=== PATIENT | female | born 1940 | race Caucasian/White ===

== ENCOUNTER → 2024-04-22 13:49 | Outpatient (REF) | payer MEDICARE, OTHER, SELFPAY | LOC: HWRCS 13:49 | PROVIDERS: ATTENDING PHYSICIAN Internal Medicine Cardiovascular Disease; FAMILY PHYSICIAN Physician Assistant Medical | DX: R60.0 Localized edema (principal) | CPT/HCPCS: 93306 ==

== ENCOUNTER → 2024-07-13 14:04 | Outpatient (REF) | payer MEDICARE, OTHER, SELFPAY | LOC: HWWDC 14:04 | PROVIDERS: ATTENDING PHYSICIAN Physician Assistant Medical | DX: Z12.31 Encounter for screening mammogram for malignant neoplasm of breast (principal) | CPT/HCPCS: 77063; 77067 ==

== ENCOUNTER 2024-07-27 15:29 | Outpatient (RCR) | payer MEDICARE, OTHER, SELFPAY ==
[2024-07-27 14:44] LABS: % Basophils 0.6 % (0-2); % Eosinophils 2.9 % (0-6); % Immature Granulocytes 0.7 % (0-0.5); % Lymphocytes 24.3 % (20.5-51.1); % Monocytes 8.4 % (1.7-9.3); % Neutrophils 63.1 % (42.2-75.2); Absolute Eosinophils 0.2 10^3/uL (0-0.7); Absolute Immature Granulocytes 0.1 10^3/uL (0-0.05); Absolute Lymphocytes 1.7 10^3/uL (1.2-3.4); Absolute Monocytes 0.6 10^3/uL (0.1-0.6); Absolute Neutrophils 4.3 10^3/uL (1.4-6.5); Hematocrit 34.3 % (37.0-47.0); Hemoglobin 11.2 g/dL (12.0-16.0); Mean Corp Hgb Conc. 32.7 g/dL (33.0-37.0); Mean Corpuscular Hgb 30.1 pg (27.0-31.0); Mean Corpuscular Volume 92.2 fL (81.0-99.0); Mean Platelet Volume 9.8 fL (7.4-10.4); Nucleated Red Blood Cells % 0 %; Platelet Count 282 10^3/uL (130-400); Red Blood Cell Count 3.72 10^6/uL (4.20-5.40); Red Cell Dist. Width 13.7 % (11.5-14.5); White Blood Cell Count 6.8 10^3/uL (4.8-10.8)
[2024-07-27 15:15] LABS: Vitamin D, 25-OH*** 46.1 ng/mL (30-80)
== END 2024-08-25 23:59 | disposition home or self-care (01) ==
LOC: OID 15:29
PROVIDERS: ATTENDING PHYSICIAN Internal Medicine Hematology & Oncology
DX: D50.9 Iron deficiency anemia, unspecified (principal); D50.0 Iron deficiency anemia secondary to blood loss (chronic); E55.9 Vitamin D deficiency, unspecified; K29.50 Unspecified chronic gastritis without bleeding
CPT/HCPCS: 82306; 85025

== ENCOUNTER → 2025-01-02 11:59 | Outpatient (REF) | payer MEDICARE, OTHER, SELFPAY ==
[2025-01-02 11:36] LABS: % Basophils 0.3 % (0-2); % Eosinophils 2.3 % (0-6); % Immature Granulocytes 0.4 % (0-0.5); % Lymphocytes 21.5 % (20.5-51.1); % Monocytes 5.9 % (1.7-9.3); % Neutrophils 69.6 % (42.2-75.2); Absolute Eosinophils 0.2 10^3/uL (0-0.7); Absolute Lymphocytes 1.6 10^3/uL (1.2-3.4); Absolute Monocytes 0.4 10^3/uL (0.1-0.6); Absolute Neutrophils 5.1 10^3/uL (1.4-6.5); Hematocrit 32.6 % (37.0-47.0); Hemoglobin 10.3 g/dL (12.0-16.0); Mean Corp Hgb Conc. 31.6 g/dL (33.0-37.0); Mean Corpuscular Hgb 28.2 pg (27.0-31.0); Mean Corpuscular Volume 89.3 fL (81.0-99.0); Mean Platelet Volume 9.6 fL (7.4-10.4); Platelet Count 302 10^3/uL (130-400); Red Blood Cell Count 3.65 10^6/uL (4.20-5.40); Red Cell Dist. Width 13.5 % (11.5-14.5); White Blood Cell Count 7.4 10^3/uL (4.8-10.8)
[2025-01-02 13:08] LABS: Vitamin D, 25-OH*** 47.3 ng/mL (30-80)
== END ==
LOC: OIDL 11:59
PROVIDERS: ATTENDING PHYSICIAN Internal Medicine Hematology & Oncology
DX: D50.9 Iron deficiency anemia, unspecified (principal); D50.0 Iron deficiency anemia secondary to blood loss (chronic); E55.9 Vitamin D deficiency, unspecified
CPT/HCPCS: 82306; 85025

== ENCOUNTER → 2025-01-09 12:40 | Outpatient (REF) | payer MEDICARE, OTHER, SELFPAY ==
[2025-01-09 13:20] LABS: Phosphorus 2.1 mg/dl (2.5-4.5)
== END ==
LOC: OIDL 12:40
PROVIDERS: ATTENDING PHYSICIAN Nurse Practitioner Primary Care
DX: D50.9 Iron deficiency anemia, unspecified (principal); D50.0 Iron deficiency anemia secondary to blood loss (chronic); E55.9 Vitamin D deficiency, unspecified
CPT/HCPCS: 84100

== ENCOUNTER → 2025-07-14 10:23 | Outpatient (REF) | payer MEDICARE, OTHER, SELFPAY | LOC: HWWDC 10:23 | PROVIDERS: ATTENDING PHYSICIAN Physician Assistant Medical | DX: Z12.31 Encounter for screening mammogram for malignant neoplasm of breast (principal) | CPT/HCPCS: 77063; 77067 ==

== ENCOUNTER → 2025-08-21 11:10 | Outpatient (REF) | payer MEDICARE, OTHER, SELFPAY ==
[2025-08-21 10:02] LABS: Hematocrit 34.6 % (37.0-47.0); Hemoglobin 10.6 g/dL (12.0-16.0); Mean Corp Hgb Conc. 30.6 g/dL (33.0-37.0); Mean Corpuscular Volume 93.3 fL (81.0-99.0); Platelet Count 271 10^3/uL (130-400); Red Cell Dist. Width 13.3 % (11.5-14.5)
== END ==
LOC: OIDL 11:10
PROVIDERS: ATTENDING PHYSICIAN Internal Medicine Hematology & Oncology
DX: D50.9 Iron deficiency anemia, unspecified (principal); D50.0 Iron deficiency anemia secondary to blood loss (chronic); E55.9 Vitamin D deficiency, unspecified
CPT/HCPCS: 82652; 85025

== ENCOUNTER → 2025-08-28 11:12 | Outpatient (REF) | payer MEDICARE, OTHER, SELFPAY ==
[2025-08-28 11:25] LABS: Hematocrit 34.0 % (37.0-47.0); Hemoglobin 10.7 g/dL (12.0-16.0); Mean Corp Hgb Conc. 31.5 g/dL (33.0-37.0); Mean Corpuscular Volume 95.0 fL (81.0-99.0); Platelet Count 274 10^3/uL (130-400); Red Cell Dist. Width 14.8 % (11.5-14.5)
== END ==
LOC: CLAB 11:12
PROVIDERS: ATTENDING PHYSICIAN Internal Medicine Hematology & Oncology
DX: D50.9 Iron deficiency anemia, unspecified (principal); D50.0 Iron deficiency anemia secondary to blood loss (chronic); E55.9 Vitamin D deficiency, unspecified
CPT/HCPCS: 84100; 85025